=== PATIENT | female | born 1970 | race Caucasian/White ===

== ENCOUNTER 2022-01-10 10:21 | Day surgery (SDC) | payer MEDICARE ==
[~2022-01-10] VITALS: Ht 170.2 cm; Wt 100.2 kg
[2022-01-10 10:51] VITALS: BP 111/73; PULSE 96; TEMP 96.5
[2022-01-10] MEDS ORDERED: EFFEXOR XR75 MG/CAP PO (11:16)
[2022-01-10] MEDS ORDERED: WELLBUTRIN XL150 MG PO (11:17)
[2022-01-10] MEDS ORDERED: NEURONTIN300 MG/CAP PO ×2 (11:18)
[2022-01-10] MEDS ORDERED: VOLTAREN 50MG T50 MG PO (11:19)
[2022-01-10] MEDS ORDERED: TOPAMAX50 MG PO (11:19)
[2022-01-10] MEDS ORDERED: FLOMAX 0.40.4 MG/CAP PO (11:20)
[2022-01-10] MEDS ORDERED: ROBAXIN 50500 MG/TAB PO (11:20)
[2022-01-10] MEDS ORDERED: CATAPRES0.2 MG PO (11:21)
[2022-01-10] MEDS ORDERED: K-DUR20 MEQ PO (11:21)
[2022-01-10] MEDS ORDERED: NEXIUM 40MG40 MG PO (11:22)
[2022-01-10] MEDS ORDERED: PEPCID 20MG TAB20 MG PO (11:23)
[2022-01-10] MEDS ORDERED: IMITREX100 MG PO (11:24)
[2022-01-10] MEDS ORDERED: ZOFRAN ODT4 MG PO (11:25)
[2022-01-10] MEDS ORDERED: MOTRIN 800800 MG/TAB PO (11:25)
[2022-01-10] MEDS ORDERED: TYLENOL 325MG325 MG PO (11:26)
[2022-01-10] MEDS ORDERED: HAIRSKINNAILS PO (11:27)
[2022-01-10] MEDS ORDERED: ESTROVEN MAX400 MCG PO (11:27)
[2022-01-10] MEDS ORDERED: AZO URINARY PAI95 MG PO (11:28)
[2022-01-10] MEDS ORDERED: MELATONIN3 M1 PO (11:29)
[2022-01-10] MEDS ORDERED: FASTIN30 MG PO (11:29)
[2022-01-10 12:02] VITALS: TEMP 98
[2022-01-10 12:10] VITALS: BP 103/72; PULSE 88
--- NOTE | 2022-01-10 12:10 | NUR ---
PATIENT RETURNS TO BAY 6 PER CART AND IS AROUSES TO VERBAL STIMULI. IV FLUIDS INFUSING. TEMP 97.2. COMPLAINS OF SORE THROAT. GIVEN ICE WATER TO SIP ON. FRIEND IN ROOM. CALL LIGHT IN REACH. ALLOWED TO REST. STATES THAT HER LEFT HIP IS HURTING AND REPOSITIONS SELF FOR COMFORT IN RECLINER.
[2022-01-10 12:25] VITALS: BP 98/61; PULSE 87
--- NOTE | 2022-01-10 12:25 | NUR ---
DR. WOOD IN THE ROOM AND ALL QUESTIONS ANSWERED. PATIENT IS AWAKE AND SITTING UP IN CHAIR. DENIES FURTHER SORE THROAT. OFFERED SNACK AND REFUSES. STATES SHE WANTS TO GO HOME AND EAT SLEEP. IV FLUIDS DISCONTINUED AND SITE IS FREE OF REDNESS OR SWELLING.
--- NOTE | 2022-01-10 12:39 | NUR ---
PATIENT IS DRESSED AND GIVEN DISMISSAL INSTRUCTIONS. VOICES UNDERSTANDING OF THESE.
--- NOTE | 2022-01-10 12:40 | NUR ---
DISMISSAL INSTRUCTIONS SIGNED. ASSISTED INTO WHEELCHAIR.
--- NOTE | 2022-01-10 12:44 | NUR ---
PATIENT DISMISSED TO HOME DRIVEN BY FRIEND AND TAKEN TO VEHICLE PER WHEELCHAIR AND ASSISTED INTO CAR WITH INSTRUCTIONS IN HAND.
== END 2022-01-10 12:44 | disposition home or self-care (01) ==
LOC: SDCO 10:21
DX: Z12.11 Encounter for screening for malignant neoplasm of colon (principal); K29.50 Unspecified chronic gastritis without bleeding; K22.4 Dyskinesia of esophagus; K57.30 Diverticulosis of large intestine without perforation or abscess without bleeding; K21.00 Gastro-esophageal reflux disease with esophagitis, without bleeding; K64.0 First degree hemorrhoids; Z79.899 Other long term (current) drug therapy; F17.210 Nicotine dependence, cigarettes, uncomplicated; K59.00 Constipation, unspecified
CPT/HCPCS: J2704; J7120

== ENCOUNTER 2022-09-26 05:40 | Day surgery (SDC) | payer MEDICARE ==
[~2022-09-26] VITALS: Ht 170.2 cm; Wt 105.4 kg
[2022-09-26] VITALS (15 sets, daily range): BP systolic 108–149; BP diastolic 56–87; PULSE 83–107; TEMP 97.5–98.5
[~2022-09-26 05:40] MED LIST: AZO URINARY PAI95 MG PO; CATAPRES0.2 MG PO; EFFEXOR XR75 MG/CAP PO; ESTROVEN MAX400 MCG PO; FASTIN30 MG PO; FLOMAX 0.40.4 MG/CAP PO; HAIRSKINNAILS PO; IMITREX100 MG PO; K-DUR20 MEQ PO; MELATONIN3 M1 PO; MOTRIN 800800 MG/TAB PO; NEURONTIN300 MG/CAP PO; NEXIUM 40MG40 MG PO; PEPCID 20MG TAB20 MG PO; ROBAXIN 50500 MG/TAB PO; TOPAMAX50 MG PO; TYLENOL 325MG325 MG PO; VOLTAREN 50MG T50 MG PO; WELLBUTRIN XL150 MG PO; ZOFRAN ODT4 MG PO
[2022-09-26] MEDS ORDERED: CARAFATE 1GM1 G PO (07:16)
[2022-09-26] MEDS ORDERED: FLEXERIL 1010 MG/TAB PO (07:17)
[2022-09-26] MEDS ORDERED: MAG-OX 400400 MG/TAB PO (07:18)
[2022-09-26] MEDS ORDERED: MOBIC15 MG PO (07:18)
[2022-09-26] MEDS ORDERED: LIPITOR20 MG PO (07:19)
[2022-09-26] MEDS ORDERED: VITAMIN D 50,1.25 MG PO (07:20)
[2022-09-26] MEDS ORDERED: SEROQUEL 1100 MG/TAB PO (07:21)
[2022-09-26] MEDS ORDERED: COLACE 100100 MG/CAP PO (07:32)
[2022-09-26] MEDS ORDERED: NORCO 325 MG-51 TAB PO (07:32)
--- NOTE | 2022-09-26 10:20 | NUR ---
PATIENT IS ORIENTED BUT SLIGHTLY DROWSY POST-OP. NOTED TACHYCARDIA IN LOW 100'S. 02 @ 2L PER NC WITH SATS IN MID TO UPPER 90'S. PATIENT IS A CURRENT SMOKER AND HAS SMOKERS COUGH. PACU REPORTS CALLING RT FOR A BREATHING TX FOR POST-OP WHEEZING. ABD TRANSVERSE INCISION IS WELL APPROXIMATED WITH GLUED CLOSURE. FISHER TO DD WITH SMALL AMOUNTS OF YELLOW URINE. IV FLUIDS INFUSING INTO LEFT HAND. HEAD TO TOE ASSESSMENT COMPLETE. SCD'S TO BLE. ORIENTED TO ROOM. CALL LIGHT IN REACH.
--- NOTE | 2022-09-26 20:58 | NUR ---
SHIFT REPORT FROM [facility]. PATIENT C/O PAIN ON ROOM ENTRY. SHAKING THE BED RAILS AND YELLING OUT IN PAIN. PRN FLEXERIL GIVEN ALONG WITH HS MEDS. PATIENT C/O PAIN AT FISHER INSERTION SITE STATING IT FAULKNER. I DISCUSSED WITH HER THAT THE FISHER WOULD COME OUT AT 0500 IN THE MORNING AND WE WOULD REMOVE HER VAGINAL PACKING. LOW TRANSVERSE IS CDI WITH EDGES WELL APPROXIMATED AND WINDOW INSTALLATION SUBCONTRACTOR, BUT PATIENT C/O THAT MESH PANTIES WERE DIGGING INTO THE SITE SO A LOOSE ABD PAD WAS APPLIED BETWEEN SITE AND MESH PANTIES. IVF CHANGED TO NEW FLUID ORDER. DENIES ADDITIONAL ORDERS AT THIS TIME. CALL LIGHT IN REACH.
[2022-09-27 00:02] VITALS: BP_SYST 116
[2022-09-27 03:29] VITALS: BP 117/66; PULSE 93; TEMP 97.6
[2022-09-27 03:40] VITALS: BP_SYST 117
--- NOTE | 2022-09-27 05:16 | NUR ---
FISHER CATHETER DISCONTINUED PER ORDER. 10 MLS REMOVED FROM BALLOON. BALLOON INTACT. PATIENT TOLERATED PROCEDURE WELL. LEFT HAT IN PATIENTS TOILET AND TOLD HER TO CALL WHEN SHE NEEDS TO USE THE BATHROOM. PATIENT IN AGREEANCE. ALSO REMOVED HER VAGINAL PACKING. BLOOD NOTED THROUGHOUT PACKING. TOLERATED PROCEDURE WELL. NEW MESH PANTIES AND PAD APPLIED. DENIES ADDITIONAL NEEDS.
[2022-09-27 07:50] VITALS: BP 110/57; PULSE 81; TEMP 98.1
[2022-09-27 09:00] VITALS: BP_SYST 110
--- NOTE | 2022-09-27 09:40 | NUR ---
MORA met with the patient to discuss discharge plan. The patient lives in [place] with her ex-, Uli Wagner (ph#[phone]). She reports independence with ADLs and does not have any DME. The patient's primary care provider is Brionna Raza APRN at [facility] and she obtains her medications from [facility] in . The patient does not have a DPOA-HC, but she was interested in a form. MORA provided. The patient states that she is not and has two children: Andreina and Jameel. The patient plans to return home with her ex- upon discharge. No additional needs at this time. *Discharge plan: home with ex-*
--- NOTE | 2022-09-27 11:12 | NUR ---
Initial visit: Vice President Of Compliance stopped by room on rounds. Pt was resting and content. Pt has no needs right now. Vice President Of Compliance will follow up as needed.
[2022-09-27 12:34] VITALS: BP 107/68; PULSE 78; TEMP 97.6
--- NOTE | 2022-09-27 13:00 | NUR ---
PATIENT IS DISCHARGING HOME VIA WC TO PERSONAL VEHICLE WITH EX . GAVE DISCHARGE INSTRUCTIONS, E-SCRIPTS SENT, AND DISCUSSED F/U APT. ANSWERED QUESTIONS/CONCERNS. DC'D IV SITE AND COVERED WITH [employer]. PATIENT REQUESTING PAIN PILLS BEFORE DISCHARGE, GIVEN. PATIENT DISCHARGED.
== END 2022-09-27 13:00 | disposition home or self-care (01) ==
LOC: SDCO 05:40 → SURG 10:20 → SDCO 09-27 13:00
DX: N39.46 Mixed incontinence (principal); N81.10 Cystocele, unspecified; F17.210 Nicotine dependence, cigarettes, uncomplicated; I10 Essential (primary) hypertension; K21.9 Gastro-esophageal reflux disease without esophagitis; Z87.440 Personal history of urinary (tract) infections; Z87.442 Personal history of urinary calculi
CPT/HCPCS: OP; A4314; J0690; J1100; J1170; J2405; J2704; J3010; J7120

== ENCOUNTER 2023-05-14 06:34 | Day surgery (SDC) | payer MEDICARE ==
[~2023-05-14] VITALS: Ht 170.2 cm; Wt 101.4 kg
[2023-05-14] VITALS (22 sets, daily range): BP systolic 119–146; BP diastolic 52–99; PULSE 79–100; TEMP 97.1–97.2
[~2023-05-14 06:34] MED LIST changes: +ATARAX 10MG10 MG/TAB PO; +CARAFATE 1GM1 G PO; +COLACE 100100 MG/CAP PO; +DAZIDOX10 MG PO; +FLEXERIL 1010 MG/TAB PO; +IBU800 M1 PO; +LIPITOR20 MG PO; +MAG-OX 400400 MG/TAB PO; +MELATONIN ER10 MG PO; +MELATONIN5 M1 SL; +MOBIC15 MG PO; +NAPROSYN 2250 MG/TAB; +NORCO 325 MG-51 TAB PO; +OMNICEF 300MG300 MG PO; +SEROQUEL 1100 MG/TAB PO; +STOOL SOFTENER100 M2 PO; +VASCEPA0.5 GM PO; +VITAMIN D 50,1.25 MG PO; +VITAMIND3 5000 PO
[2023-05-14] MEDS ORDERED: BENTYL 10MG10 MG/CAP PO (08:10)
[2023-05-14] MEDS ORDERED: PYRIDIUM 100MG100 MG PO (11:10)
[2023-05-14] MEDS ORDERED: NORCO 325 MG-51 TAB PO (11:10)
--- NOTE | 2023-05-14 12:55 | NUR ---
1152 RETURNS TO ROOM 7 PER CART. AWAKE, ALERT. RESP UNLABORED. VITAL SIGNS OBTAINED. ABD SOFT. PATIENT REPORTS LOW BACK DISCOMFORT, AND ADMITS WAS PRESENT PREOP. EXPRESSES PRESENCE OF URINARY URGENCY. 1200 AMBULATES TO BATHROOM WITH STANDBY ASSIST. ADMITS TO URINATING WITHOUT DIFFICULTY 1215 REPOSITIONS ON CART. TOLERATES PO JUICE AND PUDDING WITHOUT NAUSEA 1225 WARM BLANKET APPLIED TO LOWER BACK. DISCHARGE INSTRUCTIONS REVIEWED. PATIENT VERBALIZES UNDERSTANDING. COPY PROVIDED IN DISCHARGE FOLDER 1240 AMBULATES TO BATHROOM WITH STANDBY ASSIST, ADMITS TO VOIDING WITHOUT DIFFICULTY, THEN SITS IN CHAIR, DRESSES SELF
== END 2023-05-14 12:57 | disposition home or self-care (01) ==
LOC: SDCO 06:34
DX: N13.2 Hydronephrosis with renal and ureteral calculous obstruction (principal); F17.210 Nicotine dependence, cigarettes, uncomplicated
CPT/HCPCS: C1769; C2617; J0690; J1170; J2250; J2405; J2704; J3010; J7120

== ENCOUNTER 2023-05-17 13:00 | Day surgery (SDC) | payer MEDICARE ==
[~2023-05-17] VITALS: Ht 170.2 cm; Wt 101.0 kg
[~2023-05-17 13:00] MED LIST changes: +BENTYL 10MG10 MG/CAP PO; +PYRIDIUM 100MG100 MG PO
[2023-05-17 13:24] VITALS: BP 100/79; PULSE 90; TEMP 97.9
[2023-05-17 16:50] VITALS: BP 128/75; PULSE 72; TEMP 97
[2023-05-17 17:05] VITALS: BP 133/73; PULSE 74
[2023-05-17 17:20] VITALS: BP 136/73; PULSE 68
[2023-05-17 17:50] VITALS: BP 138/63; PULSE 75
[2023-05-17 18:20] VITALS: BP 135/71; PULSE 75
--- NOTE | 2023-05-17 20:33 | NUR ---
1650: PT TO RECOVERY BAY 8 FROM PACU S/P CYSTO WITH RIGHT URETEROSCOPY, LASER STONE ABLATION, AND STENT EXCHANGE. L&O, PLACED ON MONITOR, VSS ON RA RECEIVED REPORT AND ASSUMED CARE OF PT FROM JULIUS PARMAR PT HAS HAD SIGNIFICANT PAIN POST-OP AND BEEN MEDICATED FOR SAME, RESULTING IN MOD-SEVERE PAIN UPON ARRIVAL, HOWEVER PAIN MGMT LIMITED BY SEDATION AND BLUNTED RESPIRATORY DRIVE PER REPORT. PAIN MGMT (PHARM/NONPHAMR) EDUCATION AND EXPECTATIONS REVIEWED WITH PT - WHO VOICED UNDERSTANDING. FRIEND/RIDE AT BEDSIDE. PROVIDED FLUID/FOOD, TOLERATING WELL 1715 SUPRAPUBIC, URETHRAL, AND R FLANK PAIN PERSISTENT. T/C TO TRACEE POND FOR AZO PO NOW. 1725 1MG IV DILAUDID, PO AZO, 1OOOMG PO APAP ADMIN FOR PAIN. HEAT TO ABDOMEN REFRESHED, PT REPOSITIONED. PT TOLERATED WELL, VSS ON RA, PAIN DEMINISHED TO TOLERABLE LEVEL - PT REPORTEDLY COMFORTABLE/READY FOR DC HOME. SHE HAS REMAINED L&O, NAD, AND STABLE ON RA, TOLERATING PO, IS WITHOUT SIGNIFICANT COMPLAINT, WITH STEADY GAIT BY END OF STAY 1815 IV D/C'D. D/C INSTRUCTIONS, FOLLOW UP REVIEWED AND HANDED TO PT. ALL QUESTIONS AND CONCERNS ADDRESSED TO PT SATISFACTION. 1830 TAKEN TO EXIT VIA W/C WITH ALL BELONGINGS AND PAPERWORK IN HAND, ASSISTED INTO PASSENGER SEAT OF POV. FRIEND TO DRIVE HOME.
== END 2023-05-17 18:35 | disposition home or self-care (01) ==
LOC: SDCO 13:00
DX: N20.0 Calculus of kidney (principal); N30.20 Other chronic cystitis without hematuria; R82.81 Pyuria; F17.210 Nicotine dependence, cigarettes, uncomplicated
CPT/HCPCS: C1769; C2617; J0690; J1100; J1170; J1885; J2405; J2704; J3010; J7120

== ENCOUNTER 2024-01-11 22:44 | Emergency (ER) | payer MEDICARE, MEDICAID ==
[~2024-01-11] VITALS: Ht 170.2 cm; Wt 100.0 kg
[~2024-01-11 22:44] MED LIST changes: +PERCOCET 325 MG1 TA3 PO
[2024-01-11 22:49] VITALS: TEMP 98.2
[2024-01-11] MEDS ORDERED: Ketorolac 30 MG/ML VIAL IM ONE (23:15)
[2024-01-11] MEDS ORDERED: Cyclobenzaprine 10 MG TAB PO ONE (23:15)
[2024-01-12] MEDS ORDERED: droPERidol 2.5 MG/ML 2 ML VIAL IM ONE (00:30)
[2024-01-12] MEDS ORDERED: MEDROL 4MG DOSPA4 MG PO (01:17)
[2024-01-12] MEDS ORDERED: FLEXERIL 1010 MG/TAB PO (01:17)
[2024-01-12 01:40] VITALS: BP 120/87; PULSE 95
== END 2024-01-12 01:40 | disposition home or self-care (01) ==
LOC: COL.ER 22:44
DX: M54.16 Radiculopathy, lumbar region (principal); F17.210 Nicotine dependence, cigarettes, uncomplicated
CPT/HCPCS: J1790; J1885